=== PATIENT | female | born 1985 | race Caucasian/White ===

== ENCOUNTER 2020-03-14 17:11 | Emergency (ER) | payer SELFPAY ==
[2020-03-14] MEDS ORDERED: METHYLPREDNISOLONE INJ 40 MG/1 ML SDV IM ONE (18:02)
--- NOTE | 2020-03-14 18:11 | ER Document Report ---
HPI - HPI Patient complains to provider of: Allergic reaction Time Seen by Provider: 03/14/20 17:56 Pain Level: Denies Context: 34-year-old female past medical history significant for bipolar, anxiety, depression presents to the emergency room with a worsening rash that started yesterday after mowing the lawn. No history of allergic reactions in the past. Denies any shortness of breath, no difficulty breathing. Has been taking Benadryl without relief. States she has taken steroids in the past without any side effects. Denies any chance of . Associated Symptoms: None Exacerbated by: Denies Relieved by: Denies Similar symptoms previously: No Recently seen / treated by doctor: No - ROS Systems Reviewed and Negative: Yes All other systems reviewed and negative - CONSTITUTIONAL Constitutional: DENIES: Fever, Chills - EENT EENT: DENIES: Sore Throat - NEURO Neurology: DENIES: Weakness - RESPIRATORY Respiratory: DENIES: Trouble Breathing, Coughing - REPRODUCTIVE Reproductive: DENIES: : - DERM Skin Color: Normal, Erythema Skin Problems: Rash Past Medical History - General Information source: Patient - Social History Smoking Status: Current Every Day Smoker Frequency of alcohol use: None Drug Abuse: Marijuana Family History: Reviewed & Not Pertinent Patient has homicidal ideation: No Vertical Provider Document - CONSTITUTIONAL Agree With Documented VS: Yes Exam Limitations: No Limitations General Appearance: Mild Distress - INFECTION CONTROL TRAVEL OUTSIDE OF THE [place] IN LAST 30 DAYS: No - HEENT HEENT: Atraumatic, Normocephalic - NECK Neck: Normal Inspection, Supple - RESPIRATORY Respiratory: Breath Sounds Normal, No Respiratory Distress - CARDIOVASCULAR Cardiovascular: No Murmur, Tachycardia - MUSCULOSKELETAL/EXTREMETIES Musculoskeletal/Extremeties: FROM - NEURO Level of Consciousness: Awake, Alert, Appropriate Motor/Sensory: No Motor Deficit, No Sensory Deficit - DERM Integumentary: Warm, Dry, Rash - Scattered urticaria rash noted to the bilateral upper and lower extremities as well as the abdomen, chest, and trunk. Nonblanching. Course - Re-evaluation Re-evalutation: 03/14/20 18:27 Patient is resting comfortably with decreased urticaria noted. Counseled to take the steroids as prescribed starting tomorrow. Can take Claritin, Zyrtec, or Benadryl as needed for itching. Outpatient follow-up with a primary care physician if not improving in 2 to 3 days. On-call physician was provided. Patient was given strict return to the emergency room guidelines. Return for any new or worsening symptoms. All questions were answered. Patient verbalized understanding and agrees with plan of care. - Vital Signs Vital signs: Temp Pulse Resp BP Pulse Ox 99.5 F 110 H 17 122/69 94 03/14/20 17:18 03/14/20 17:18 03/14/20 17:18 03/14/20 17:18 03/14/20 17:18 Discharge - Discharge Clinical Impression: Urticaria Allergic reaction Qualifiers: Encounter type: initial encounter Qualified Code(s): T78.40XA - Allergy, unspecified, initial encounter Condition: Stable Disposition: HOME, SELF-CARE Instructions: Acute Urticaria ([facility]), Acute Allergic Reaction ([facility]) Additional Instructions: Zyrtec, Claritin, or Benadryl as directed for itching. Prednisone as prescribed outpatient follow-up with a primary care physician if not improving in 2 to 3 days. Return to the emergency room for any new or worsening symptoms. Prescriptions: Prednisone [Deltasone 20 mg Tablet] See Protocol PO DAILY 9 Days #18 tablet Referrals: HANSEL TOTH MD [ACTIVE STAFF] - Follow up as needed
[2020-03-14 18:54] VITALS: BP 118/74
== END 2020-03-14 18:40 | disposition home or self-care (01) ==
LOC: ER 17:11
DX: T78.40XA Allergy, unspecified, initial encounter (principal); X58.XXXA Exposure to other specified factors, initial encounter; L50.9 Urticaria, unspecified; F17.200 Nicotine dependence, unspecified, uncomplicated; R00.0 Tachycardia, unspecified; F12.10 Cannabis abuse, uncomplicated
CPT/HCPCS: 99282; 96372; J2920